=== PATIENT | male | born 1965 | race Caucasian/White ===

== ENCOUNTER 2024-05-19 12:33 | Day surgery (SDC) | payer BC ==
[2024-05-16 15:48] VITALS: BMI 30.1
[2024-05-19] MEDS: IV FLUID CONTINUATION 1,000 ML IV ONE (12:44)
[2024-05-19] MEDS: LACTATED RINGERS 1,000 ML IV SCH (12:48)
[2024-05-19 12:55] VITALS: TEMP 97.6
[2024-05-19] MEDS ORDERED: PROPOFOL 10 MG/ML 20 ML VIAL IV ONE (14:27)
--- NOTE | 2024-05-19 14:44 | P.PCN ---
Date of Procedure: 05/19/24 Procedure(s) Performed: BRIEF HISTORY: Patient is a 58-year-old pleasant white male scheduled for an elective colonoscopy as a part of screening for colon cancer. PROCEDURE PERFORMED: Colonoscopy with snare polypectomy. PREOPERATIVE DIAGNOSIS: Screening for colon cancer. IV sedation per Anesthesia. PROCEDURE: After informed consent was obtained, the patient, was brought into the endoscopy unit. IV sedation was administered by Anesthesia under continuous monitoring. Digital rectal examination was normal. Initially the Olympus CF-160 flexible video colonoscope was then inserted in the rectum, gradually advanced into the cecum without any difficulty. Careful examination was performed as the scope was gradually being withdrawn. Ileocecal valve and the appendiceal orifice were visualized and appeared normal. Prep was excellent. Mucosa of the cecum, ascending colon, transverse colon, descending colon appeared normal. In the descending colon there was a 7 mm sessile polyp removed by cold snare polypectomy. Scattered left-sided diverticulosis seen. Rest of the, sigmoid colon, and rectum appeared normal. Retroflexion was performed in the rectum and no lesions were seen. The patient tolerated the procedure well. IMPRESSION: 7 mm descending colon polyp status post cold snare polypectomy Scattered diverticulosis RECOMMENDATIONS: Findings of this examination were discussed with the patient as well as his family. He was advised to follow-up with the biopsy results. If the biopsy reveals adenoma, recommended repeat colonoscopy in 5 years.
[2024-05-19 14:49] VITALS: RESP 16
[2024-05-19 15:04] VITALS: BP 130/86; PULSE 65
== END 2024-05-19 15:23 | disposition home or self-care (01) ==
LOC: ORWHC2ENDO 12:33
PROVIDERS: ATTEND Internal Medicine Gastroenterology
DX: Z12.11 Encounter for screening for malignant neoplasm of colon (principal); D12.4 Benign neoplasm of descending colon; K57.30 Diverticulosis of large intestine without perforation or abscess without bleeding; M54.50 Low back pain, unspecified
CPT/HCPCS: 45385; 88305